=== PATIENT | female | born 1975 | race African-American/Black ===

== ENCOUNTER 2016-10-31 04:51 | Emergency (ER) | payer SELFPAY ==
[2016-10-31 04:57] VITALS: BP 168/88; BMI 40.5
--- NOTE | 2016-10-31 05:18 | DR.GENAD ---
HPI - PCP Primary Care Physician: TAS[facility] LOC[facility] - Complaint/Symptoms Chief Complaint Doctors Comments: Patient with dental pain right upper gum for several days. Pain is moderate, intermittent, duration for months, modifying factor eating sharp. No funds to see dentist. Chief Complaint:: PAIN IN RIGHT UPPER GUM/MOUTH , SHOOTING PAIN IN RIGHT SIDE OF HEAD FOR 3-4 DAYS Self Treatment fo Chief Complaint: OTC MEDS, NOT HELPING - Source History Provided: Patient - Mode of Arrival Mode of Arrival: Ambulatory - Timing Onset of Chief Complaint: 10/27/16 PMH - PMH Past Medical History: Yes Past Medical History: Anxiety, Asthma, CVA, Headaches Past Medical History Comment: SCARCODOSIS. SCOLIOSIS Past Surgical History: No - Family History History of Family Medical Conditions: Yes Family Medical History: Diabetes Mellitus, NM, Hypertension - Social History Type of Tobacco Use: Cigarettes Alcohol Use: None Do you use any recreational Drugs:: No Lives With: Family Lives Where: Home - infectious screening Have you traveled outside the country in the last 6 months?: No Isolation: Standard ROS - Review of Systems Constitutional: No Symptoms Reported Eyes: No Symptoms Reported ENTM: See HPI Respiratoy: No Symptoms Reported Cardiovascular: No Symptoms Reported Gastrointestinal/Abdominal: No Symptoms Reported Genitourinary: No Symptoms Reported Neurological: No Symptoms Reported Musculoskeletal: No Symptoms Reported Integumentary: No Symptoms Reported Hematologic/Lymphatic: No Symptoms Reported Endocrine: No Symptoms Reported Psychiatric: No Symptoms Reported All Other Systems: Reviewed and Negative PE - Vital Signs Vitals: Pulse Rate 95 Respiratory Rate 16 Blood Pressure [Left Arm] 138/74 Blood Pressure [Right Arm] 122/74 Blood Pressure 168/88 O2 Sat by Pulse Oximetry 100 - General Limitations: No Limitations General Appearance: Alert, In No Apparent Distress - Head Head Exam: Normal Inspection, Atraumatic - Eyes Eye exam: Normal Appearance, PERRL, EOMI - ENT ENT Exam: Normal Exam, Other (dental cavity #2) External Ear Exam: Normal External Inspection TM/Canal Exam: Bilateral Normal Nose Exam: Normal Nose Exam Mouth Exam: Normal Inspection Throat Exam: Normal Inspection - Neck Neck Exam: Normal Inspection - Chest Chest Inspection: Normal Inspection - Respiratory Respiratory Exam: Normal Lung Sounds Bilat Respiratory Exam: Bilateral Clear to Auscultation - Cardiovascular Cardiovascular Exam: Regular Rate, Normal Rhythm - Abdominal Exam Abdominal Exam: Normal Inspection Abdominal Tenderness: negative: RUQ, RLQ, LUQ, LLQ, Epigastrium, Suprapubic, Diffuse, Mild, Moderate, Severe, Other - Extremities Extremities Exam: Normal Inspection, Full ROM - Back Back Exam: Normal Inspection - Neurologic Neurological Exam: Alert, Oriented X3, CN II-XII Intact - Psychiatric Psychiatric Exam: Normal Affect - Skin Skin Exam: Warm, Dry, Intact - Diagnosis Discharge Problem: Pain, dental - Discharge Plan Condition: Stable - Follow ups/Referrals Follow ups/Referrals: NFD,None [Primary Care Provider] - 3 days - Instructions
[2016-10-31] MEDS ORDERED: TORADOL 60 MG VIAL IM ONE (05:20)
[2016-10-31] MEDS ORDERED: TORADOL 60 MG VIAL ONE (05:21)
== END 2016-10-31 05:29 | disposition home or self-care (01) ==
LOC: ER 04:51
DX: K08.89 Other specified disorders of teeth and supporting structures (principal)
CPT/HCPCS: 96372; 99282; J1885